=== PATIENT | female | born 1990 | race African-American/Black ===

== ENCOUNTER 2018-08-09 13:00 | Inpatient (IN) ==
[2018-08-09] MEDS ORDERED: LACTATED RINGERS 500 ML IV PRN (13:08)
[2018-08-09] MEDS ORDERED: ONDANSETRON 4 MG/2 ML VIAL IV PRN (13:08)
[2018-08-09] MEDS ORDERED: LACTATED RINGERS 1,000 ML IV SCH (13:30)
[2018-08-09] MEDS ORDERED: OXYTOCIN/LR 20 UNIT/1,000 ML BAG IV SCH (13:30)
[2018-08-09 13:49] LABS: Basophils % 0.2 % (0.0-0.8); Eosinophils % 0.4 % (0.00-10.9); Hematocrit 37.4 VOL% (35.7-47.0); Hemoglobin 12.6 GM/DL (12.0-16.0); Immature Granulocytes % 0.4 %; Immature Granulocytes Absolute 0.03 #; Lymphocytes # 2.2 10*3/uL (1.4-4.0); Lymphocytes % 27.5 % (21.3-54.2); Mean Corpuscular HGB Conc 33.7 GM/DL (32-36); Mean Corpuscular Volume 90.6 FL (87-102); Mean Platelet Volume 11.7 FL (9.6-12.0); Monocytes % 8.5 % (1.7-12.7); Platelet Count 218 T/CUMM (130-400); Red Blood Count 4.13 MC/CUMM (3.8-5.5); Red Cell Distribution Width 13.7 % (9.3-17.3); White Blood Count 8.1 T/CUMM (4-12)
[2018-08-09 14:18] LABS: Albumin 3.1 G/DL (3.4-5.0); Bilirubin,Total 0.5 MG/DL (0.2-1.0); Calcium 8.8 MG/DL (8.5-10.1); Osmolality,Calculated 279.1 MOS/KG (273-304); Total Protein 6.7 G/DL (6.4-8.3)
[2018-08-09 14:35] LABS: INR 0.9; PT Patient Result 9.5 SECS; Partial Thromboplastin Time 26.5 SECS (0-40)
[2018-08-09] MEDS ORDERED: BUTORPHANOL 2 MG/ML VIAL ONE (18:50)
[2018-08-09] MEDS ORDERED: BUTORPHANOL 2 MG/ML VIAL IV PRN (18:51)
[2018-08-09] MEDS ORDERED: CITRIC ACID/SODIUM CITRATE 30 ML UDCUP PO ONE (19:35)
[2018-08-09] MEDS ORDERED: ePHEDrine 50 MG/ML AMP IV PRN (19:35)
[2018-08-09] MEDS ORDERED: diphenhydrAMINE 50 MG/1 ML VIAL IV PRN ×2 (19:35)
[2018-08-09] MEDS ORDERED: FAMOTIDINE 20 MG/2 ML VIAL IV ONE (19:35)
[2018-08-09] MEDS ORDERED: PROMETHAZINE 25 MG/1 ML VIAL IM ONE (19:35)
[2018-08-09] MEDS ORDERED: LACTATED RINGERS 1,000 ML IV ONE (19:35)
[2018-08-09] MEDS ORDERED: NALOXONE 0.4 MG/ML VIAL IV PRN (19:35)
[2018-08-09] MEDS ORDERED: fentaNYL 2 MCG/ROPIV 0.2% EPID 100 ML EPIDURAL SCH (20:00)
[2018-08-09 20:34] LABS: Apearance,Urine CLEAR (Clear); Bilirubin,Urine Negative (Negative); Blood, Urine Negative (Negative); Glucose,Urine (UA) Negative (Negative); Ketones,Urine 80 mg/dL (Negative); Mucus,Urine Occasional /LPF (Occasional); Nitrite,Urine Negative (Negative); Protein,Urine Negative; RBC,Urine <1 /HPF (0-4); Urine Color Yellow (Yellow); Urine Specific Gravity 1.005 (1.001-1.035); Urine Urobilinogen < 2.0 EU/DL (0.2-1.0)
[2018-08-09] MEDS ORDERED: METHYLERGONOVINE 0.2 MG/1 ML AMP ONE (23:31)
[2018-08-09] MEDS ORDERED: miSOPROStol 200 MCG TABLET ONE (23:31)
[2018-08-10] MEDS ORDERED: IBUPROFEN 800 MG TABLET PO PRN (01:11)
[2018-08-10] MEDS ORDERED: ONDANSETRON 4 MG/2 ML VIAL IV PRN (01:11)
[2018-08-10] MEDS ORDERED: HYDROCORTISONE 2.5% RECTAL CREAM 30 GM TUBE TOP PRN (01:11)
[2018-08-10] MEDS ORDERED: OXYTOCIN/LR 20 UNIT/1,000 ML BAG IV ONE (01:11)
[2018-08-10] MEDS ORDERED: RHO(D) IMMUNE GLOBULIN 300 MCG SYRINGE IM ONE (01:11)
[2018-08-10] MEDS ORDERED: BISACODYL 10 MG SUPP RECTAL PRN (01:11)
[2018-08-10] MEDS ORDERED: MEASLES/MUMPS/RUBELLA VACCINE 0.5 ML VIAL SUBCUT ONE (01:11)
[2018-08-10] MEDS ORDERED: LANOLIN 50% CREAM 0.3 OZ TUBE TOP PRN (01:11)
[2018-08-10] MEDS ORDERED: BENZOCAINE 20%/MENTHOL 0.5% SPRAY 56 GM CAN TOP PRN (01:11)
[2018-08-10] MEDS ORDERED: WITCH HAZEL PADS 100/JAR TOP PRN (01:11)
[2018-08-10] MEDS ORDERED: ACETAMINOPHEN 325 MG TABLET PO PRN (01:11)
[2018-08-10] MEDS ORDERED: oxyCODONE/ACETAMINOPHEN 5-325 MG TABLET PO PRN ×2 (01:11)
[2018-08-10] MEDS ORDERED: DIPH/TET/ACEL PERT BOOSTER VACCINE 0.5 ML VIAL IM ONE (01:11)
[2018-08-10 05:42] LABS: Basophils % 0.1 % (0.0-0.8); Hematocrit 34.6 VOL% (35.7-47.0); Hemoglobin 11.6 GM/DL (12.0-16.0); Immature Granulocytes % 0.5 %; Immature Granulocytes Absolute 0.07 #; Lymphocytes # 1.2 10*3/uL (1.4-4.0); Lymphocytes % 8.6 % (21.3-54.2); Mean Corpuscular HGB Conc 33.5 GM/DL (32-36); Mean Corpuscular Volume 90.8 FL (87-102); Mean Platelet Volume 12.1 FL (9.6-12.0); Monocytes % 8.4 % (1.7-12.7); Neutrophils % 82.4 % (38.7-73.9); Platelet Count 200 T/CUMM (130-400); Red Blood Count 3.81 MC/CUMM (3.8-5.5); Red Cell Distribution Width 13.7 % (9.3-17.3); White Blood Count 13.4 T/CUMM (4-12)
[2018-08-10] MEDS: DOCUSATE SODIUM 100 MG CAPSULE PO SCH ×2 (09:42→21:29)
[2018-08-11] MEDS: DOCUSATE SODIUM 100 MG CAPSULE PO SCH (10:05)
[2018-08-11 11:56] VITALS: BP 142/85
== END 2018-08-11 15:00 | disposition home or self-care (01) | DRG 807 ==
LOC: N.LDOUT 13:00 → N.LD 13:02 → N.OB 08-10 03:05
PROVIDERS: ADMIT Obstetrics & Gynecology; ATTEND Obstetrics & Gynecology